=== PATIENT | male | born 1990 | race Hispanic/Latino ===

== ENCOUNTER 2024-10-11 20:14 | Emergency (ER) | payer SELFPAY ==
[~2024-10-11] VITALS: Ht 172.7 cm; Wt 102.1 kg
--- NOTE | 2024-10-11 20:16 | NUR ---
UA CUP PROVIDED
--- NOTE | 2024-10-11 22:06 | ERN ---
ED Note History of Present Illness Stated Complaint: RASH TO PRIVATES Chief Complaint: Skin Rash/Abscess Time Seen by MD: 20:20 Dictation: This is a 34-year-old male who presented to the emergency room with complaints of rash to the shaft of penis. He stated that he noticed a slight redness and burning sensation on the shaft of his penis and he got concerned and came to the ER for further evaluation. He is a heterosexual and does admit to being sexually active. No history of any sexually transmitted diseases. No history of any lesions or ulcers. Temperature 98.5 pulse 95 respirations 20 blood pressure 167/677 with a pulse oximetry of 98% on room air Allergies: Coded Allergies: No Known Allergies (Unverified Allergy, Unknown, 10/11/24) Past Medical History Past Medical History: No Pertinent History Surgical History: None Family History: Negative Social History: Negative RN Note Reviewed/Agreed w/PFSH: Yes Review of System Dictation Constitutional: Negative for fever,chills, and weight loss Eyes: Negative for injury, pain,redness, and discharge ENT: Negative for injury,pain or swelling Cardiovascular: Negative for chest pain, palpitations, and edema Respiratory: Negative for shortness of breath, cough, and wheezing, Abdomen/GI: Negative for abdominal pain, nausea, vomiting, diarrhea, and constipation Back: Negative for injury and pain : Negative for injury, bleeding and discharge MS/Extremity: Negative for injury and deformity Skin: Positive for rash on the shaft of the penis, and denied discoloration Neuro: Negative for headache, weakness, numbness, tingling, and seizure Psych: Negative for suicide ideation, homicidal ideation, and hallucinations Initial Vital Sign VS Vital Signs Date Time Temp Pulse Resp B/P (MAP) Pulse Ox O2 Delivery O2 Flow Rate FiO2 10/11/24 20:16 98.4 95 20 167/77 100 Room Air 10/11/24 22:08 0 21 Physical Exam Dictation General: awake, alert, NAD Head/Face: Normocephalic, atraumatic Eyes: PERRL, EOMI, vision at baseline ENT: oral cavity clear, TMs clear, no signs of infection Neck: Trachea midline, supple, no nuchal rigidity Cardiovascular: RRR, normal S1/S2, No MRGs, no JVD Respiratory: CTAB, no respiratory distress, No rales or wheezes Abdomen: Soft, non-tender, non-distended, normal bowel sounds, no guarding or rebound. Skin: Warm, dry, normal turgor, no rash MS/Extremity: Pulses equal, no cyanosis, neurovascular intact, FROM Neuro: COAx4, GCS 15, strength 5/5, CN 2-12 intact, normal cerebellar exam, normal gait, Psych: Normal behavior, mood, and affect normal Extremities-trace edema without any palpable cords, Homans sign is negative -patient has uncircumcised penis and upon retracting the foreskin there was a small area of erythema but it did not appear as ulcers. No weeping no drainage no induration. ED Course ED Course Vital Signs Date Time Temp Pulse Resp B/P (MAP) Pulse Ox O2 Delivery O2 Flow Rate FiO2 10/11/24 22:08 98.4 65 18 142/74 98 Room Air* 0 21 10/11/24 20:16 98.4 95 20 167/77 100 Room Air I had a long discussion at bedside with the patient and explained to him that this may simply be an allergic reaction to soap or detergent etcetera I also educated him on retracting the foreskin and washing with soap and water and cleanliness. I recommended a short course of cortisone cream as the 1st step to see if the rash would improve. And I counseled him on use of condoms to avoid any STDs. Medical Decision Making MDM MDM: Differential diagnosis: Balanitis, herpetic lesions, allergic reaction, cellulitis, bacterial infection, sexually transmitted infections Rationale: Tests considered and ordered secondary to shared decision making include: Previous outside records reviewed: Old ER visits. Risk of complication and/or morbidity or mortality of patient management: None Medications-Per medication reconciliation Need for hospitalization: Patient does not meet criteria for hospitalization. Need for emergency major/minor surgery: No There are no social concerns with this patient. Prescription drug management Prescriptions will include symptomatic care Patient's prior external medical records from other ER visits were reviewed by me as indicated. Prior testing and results from previous visits were reviewed. Prior tests were taken into account with medical decision making and resource utilization, independent historian/historians were used to obtain complete medical history. I independently interpreted the test that were performed, results were reviewed by me and considered findings on radiology if ordered. Medical management and examination interpretation discussions were had by me with other qualified healthcare professionals as indicated for the patient's care. Problem List Problem List: (1) Rash of penis DX & DISP Disposition: Discharge Departure Impression: Primary Impression: Rash of penis Condition: Stable Additional Instructions: Patient and the caregiver have been informed of all the diagnostic tests and the imaging conducted during the today's visit to the emergency room and has verbalized understanding of the results I have personally reviewed and interpreted all diagnostic exams performed here in the ER today as well as the vital signs documented by the nursing staff. The patient is now being discharged to home and should follow up with the primary care physician or the specialist as directed by the ER staff. Follow-up with primary care provider in 1 to 2 days. Take medications as directed here in the emergency room. Okay to continue home medications unless otherwise discussed during your visit in the emergency room today. Return to your nearest emergency room if symptoms worsen or if there is no improvement. Call 911 if you need immediate assistance. Take Tylenol or Motrin [id number] as needed and if no contraindications are present. Increase oral hydration. A wound culture or urine culture was ordered here in the emergency room department please follow-up with primary care provider and advise them to get repeat ports from our facility. If you had any Gareth wrap/splints that were applied here, please do not remove them until you see your primary care or specialty. OTC hydrocortisone cream Referrals: SELF,REFERRAL (PCP) JOSELIN NICHOLS MD October 11, 2024 22:06
[2024-10-11 22:08] VITALS: BP 142/74; PULSE 65; RESP 18; TEMP 98.4; O2SAT 98
== END 2024-10-11 22:13 | disposition home or self-care (01) ==
LOC: EDH 20:14
DX: R21 Rash and other nonspecific skin eruption (principal)
CPT/HCPCS: 99282